=== PATIENT | female | born 1925 | race Caucasian/White ===

== ENCOUNTER 2017-02-26 18:42 | Inpatient (IN) | payer OTHER ==
--- NOTE | 2017-02-26 18:46 | EDPHY ---
HPI/HX/ROS/PE/MDM Narrative: CHIEF COMPLAINT: Stroke alert HISTORY OF PRESENT ILLNESS: This patient is a non-anticoagulated 89 y/o female arriving emergently from home via EMS for a stroke alert. She was last seen normal by her son at 10am. When he returned this evening around 6pm, she was found sitting on the couch with altered mental status, incontinent of bowel and stool and noticed to be weak on her left side. and summoned EMS. Per EMS report, the patient had severe left-sided weakness. She was nauseous and EMS administered 4mg IV Zofran in transport. Vitals were stable in transport, BP 160/100, HR 70, BGL 146. Currently, the patient continues to feel nauseous. She denies any pain including chest pain or abdominal pain. She lives in her own, and states that her son helped her with laundry this morning and then she worked on her income tax this afternoon. She is not sure what happened between that time and her arrival here in the emergency department. She denies history of stroke or heart attack in the past. No fever, chills, chest pain, shortness of breath, palpitations, vomiting, diarrhea, urinary complaints, headache, lightheadedness. REVIEW OF SYSTEMS: Complete Review of systems is unobtainable from this patient because of clinical condition. PAST MEDICAL HISTORY: Cholecystectomy, Hypertension, Left hip fracture. 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 Son present at bedside. VITAL SIGNS: Reviewed by me GENERAL: Elderly female, ill-appearing, slumped to the left side of the EMS gurney. Obvious left-sided neglect. HEENT: Atraumatic. Eyes: No icterus, no injection. No obvious left-sided facial droop. Neck: supple with no adenopathy. LUNGS: Coarse breath sounds throughout. CARDIAC: Regular rate and rhythm, no rubs, murmurs or gallops. ABDOMEN: Soft, nontender, nondistended, bowel sounds normal. BACK: No CVA tenderness. EXTREMITIES: No trauma. No edema. NEURO: Left-sided neglect, left-sided weakness of the arm and leg. Patient is unable to cooperate fully with cranial nerve examinations. No obvious left- sided facial droop. Alert and oriented x3 SKIN: Warm and dry, no rash. PSYCHIATRIC: Normal mentation, no agitation. Portions of this note were transcribed by a medical office worker. I personally performed a history, physical exam, medical decision making, and confirmed accuracy of information the transcribed note. ED Course: 18:42 Met EMS on arrival. 18:[address] Stroke alert called. 19:[address] Erwin, neurologist at [facility]. Patient was last seen normal 9 hr ago. She is out of the window for systemic tPA. Dr. Phelps recommends CT scan of the head and CTA. 19:[address] Kemp, radiologist. No intracranial hemorrhage. Significant white matter disease. Patient is more alert. Further history is obtained. I discussed the results of the CTs thus far with the patient and son. She continues to demonstrate significant weakness on the left side as well as significant left-sided neglect. 20:[address] Kemp. CTA head/neck negative for large vessel occlusions. Patient clinically presents with a significant probable CVA. Urinalysis does not demonstrate any infection. EKG does have T-wave inversions in the lateral leads. Patient's troponin is negative. 20:34 Dr. Tam, hospitalist. accepts admission for CVA, left-sided weakness. MDM: Differential diagnoses the patient's presenting complaints was considered including but not limited to intracranial injury, TIA, ischemic cerebrovascular accident, hemorrhagic cerebrovascular accident, hypoglycemia, complex migraine , metastases, tumor, seizure, or electrolyte abnormality - Data Points Imaging Results: Imaging Impressions Head CT 02/26/17 18:44 Impression: 1. Severe white matter low-attenuation changes consistent with small vessel ischemic disease. 2. Possible dense right middle cerebral artery which may reflect slow flow or occlusion. 3. Right frontal low-attenuation which is more pronounced and could reflect age indeterminate cortical ischemia. Results called and discussed with Valerie Wylie MD, on 02/26/2017 at 19:10. Chest X-Ray 02/26/17 18:46 Impression: 1. Congestive heart failure without elida pulmonary edema. 2. Left basilar opacity, atelectasis versus pneumonia. Head CTA 02/26/17 19:06 Impression: Essentially negative CT angiography of the neck, with no arterial occlusive disease identified. CT Angiography of the Head, With Attention to the [place] Reason for examination: R29.818 - Neurological changes strongly suggesting intracerebral aneurysm. Technique: A spiral acquisition was performed from the base of the brain to the vertex during rapid intravenous administration of 85 mL of Isovue-370. This contrast volume was utilized for evaluation of the neck and head. Axial images are obtained at 0.6-mm thickness, and the examination is reviewed on the workstation in multiple window and level settings. Sagittal and coronal reformats are performed and three-dimensional reformations are performed by the radiologist on the workstation. Dose reduction techniques were utilized. Findings: There is excellent arterial opacification. There is dolichoectasia and atherosclerotic calcification involving the cavernous portions of the internal carotid arteries bilaterally. No obstruction is identified. The anterior and middle cerebral arteries appear normal. Specifically, there is no obstruction of the right middle cerebral artery. The [place] is intact , with both anterior and posterior communicating arteries identified. The basilar artery as well as posterior cerebral arteries are normal. No regions of stenosis are identified. No hemorrhages are seen, and no vascular malformations are identified. No areas of abnormal perfusion are identified, and there are no findings to suggest cortical ischemia. Impression: 1. CT angiography of the head negative for occlusive disease. 2. Atherosclerotic changes and dolichoectasia of cavernous portions of the internal carotid arteries bilaterally. Results called and discussed with Valerie Wylie M.D., on February 26, 2017 at 1957. Note: All stenoses are calculated using NASCET Criteria. Neck CTA 02/26/17 19:06 Impression: Essentially negative CT angiography of the neck, with no arterial occlusive disease identified. CT Angiography of the Head, With Attention to the [place] Reason for examination: R29.818 - Neurological changes strongly suggesting intracerebral aneurysm. Technique: A spiral acquisition was performed from the base of the brain to the vertex during rapid intravenous administration of 85 mL of Isovue-370. This contrast volume was utilized for evaluation of the neck and head. Axial images are obtained at 0.6-mm thickness, and the examination is reviewed on the workstation in multiple window and level settings. Sagittal and coronal reformats are performed and three-dimensional reformations are performed by the radiologist on the workstation. Dose reduction techniques were utilized. Findings: There is excellent arterial opacification. There is dolichoectasia and atherosclerotic calcification involving the cavernous portions of the internal carotid arteries bilaterally. No obstruction is identified. The anterior and middle cerebral arteries appear normal. Specifically, there is no obstruction of the right middle cerebral artery. The [place] is intact , with both anterior and posterior communicating arteries identified. The basilar artery as well as posterior cerebral arteries are normal. No regions of stenosis are identified. No hemorrhages are seen, and no vascular malformations are identified. No areas of abnormal perfusion are identified, and there are no findings to suggest cortical ischemia. Impression: 1. CT angiography of the head negative for occlusive disease. 2. Atherosclerotic changes and dolichoectasia of cavernous portions of the internal carotid arteries bilaterally. Results called and discussed with Valerie Wylie M.D., on February 26, 2017 at 1957. Note: All stenoses are calculated using NASCET Criteria. Imaging: Discussed imaging studies w/ assembler trim Radiologist Laboratory Results: Laboratory Results 02/26/17 18:45 02/26/17 18:45 02/26/17 02/26/17 02/26/17 20:03 20:00 18:45 WBC RBC Hgb POC Hgb Hct POC Hct MCV MCH MCHC RDW Plt Count MPV Neut % (Auto) Lymph % (Auto) [place] % (Auto) Eos % (Auto) Baso % (Auto) Nucleat RBC Rel Count Absolute Neuts (auto) Absolute Lymphs (auto) Absolute Monos (auto) Absolute Eos (auto) Absolute Basos (auto) Absolute Nucleated RBC Immature Gran % Immature Gran # PT INR VBG Lactic Acid 1.6 mmol/L mmol/L (0.7-2.1) POC Sodium Sodium POC Potassium Potassium POC Chloride Chloride Carbon Dioxide Anion Gap POC BUN BUN Creatinine POC Creatinine Estimated GFR Glucose POC Glucose Calcium Troponin I < 0.012 ng/mL ng/mL (0.000-0.034) Urine Color COLORLESS Urine Appearance CLEAR Urine pH 6.0 (5.0-7.5) Ur Specific [place] 1.028 (1.002-1.030) Urine Protein NEGATIVE (NEGATIVE) Urine Ketones TRACE H (NEGATIVE) Urine Blood NEGATIVE (NEGATIVE) Urine Nitrate NEGATIVE (NEGATIVE) Urine Bilirubin NEGATIVE (NEGATIVE) Urine Urobilinogen NEGATIVE EU EU (0.2-1.0) Ur Leukocyte Esterase NEGATIVE (NEGATIVE) Urine RBC 1-3 /hpf /hpf (0-3) Urine WBC 1-3 /hpf /hpf (0-3) Ur Epithelial Cells NONE SEEN /lpf /lpf (NONE-1+) Urine Glucose 1+ H (NEGATIVE) 02/26/17 02/26/1702/26/18 18:45 18:45 18:45 WBC 8.09 10^3/uL 10^3/uL (3.80-9.50) RBC 4.46 10^6/uL 10^6/uL (4.18-5.33) Hgb 14.9 g/dL g/dL (12.6-16.3) POC Hgb Hct 43.9 % % (38.0-47.0) POC Hct MCV 98.4 fL fL (81.5-99.8) MCH 33.4 pg pg (27.9-34.1) MCHC 33.9 g/dL g/dL (32.4-36.7) RDW 12.9 % % (11.5-15.2) Plt Count 189 10^3/uL 10^3/uL (150-400) MPV 9.5 fL fL (8.7-11.7) Neut % (Auto) 71.7 % % (39.3-74.2) Lymph % (Auto) 18.7 % % (15.0-45.0) [place] % (Auto) 7.8 % % (4.5-13.0) Eos % (Auto) 1.0 % % (0.6-7.6) Baso % (Auto) 0.4 % % (0.3-1.7) Nucleat RBC Rel Count 0.0 % % (0.0-0.2) Absolute Neuts (auto) 5.81 10^3/uL 10^3/uL (1.70-6.50) Absolute Lymphs (auto) 1.51 10^3/uL 10^3/uL (1.00-3.00) Absolute Monos (auto) 0.63 10^3/uL 10^3/uL (0.30-0.80) Absolute Eos (auto) 0.08 10^3/uL 10^3/uL (0.03-0.40) Absolute Basos (auto) 0.03 10^3/uL 10^3/uL (0.02-0.10) Absolute Nucleated RBC 0.00 10^3/uL 10^3/uL (0-0.01) Immature Gran % 0.4 % % (0.0-1.1) Immature Gran # 0.03 10^3/uL 10^3/uL (0.00-0.10) PT 13.8 SEC SEC (12.0-15.0) INR 1.04 (0.83-1.16) VBG Lactic Acid POC Sodium Sodium 140 mEq/L mEq/L (135-145) POC Potassium Potassium 4.6 mEq/L mEq/L (3.5-5.2) POC Chloride Chloride 104 mEq/L mEq/L (97-110) Carbon Dioxide 19 mEq/l L mEq/l (22-31) Anion Gap 17 mEq/L H mEq/L (8-16) POC BUN BUN 30 mg/dL H mg/dL (7-23) Creatinine 0.8 mg/dL mg/dL (0.6-1.0) POC Creatinine Estimated GFR > 60 Glucose 137 mg/dL H mg/dL (70-100) POC Glucose Calcium 9.5 mg/dL mg/dL (8.5-10.4) Troponin I Urine Color Urine Appearance Urine pH Ur Specific [place] Urine Protein Urine Ketones Urine Blood Urine Nitrate Urine Bilirubin Urine Urobilinogen Ur Leukocyte Esterase Urine RBC Urine WBC Ur Epithelial Cells Urine Glucose 02/26/17 18:37 WBC RBC Hgb POC Hgb 16.0 gm/dL gm/dL (12.6-16.3) Hct POC Hct 47 % % (38-47) MCV MCH MCHC RDW Plt Count MPV Neut % (Auto) Lymph % (Auto) [place] % (Auto) Eos % (Auto) Baso % (Auto) Nucleat RBC Rel Count Absolute Neuts (auto) Absolute Lymphs (auto) Absolute Monos (auto) Absolute Eos (auto) Absolute Basos (auto) Absolute Nucleated RBC Immature Gran % Immature Gran # PT INR VBG Lactic Acid POC Sodium 138 mEq/L mEq/L (135-145) Sodium POC Potassium 4.2 mEq/L mEq/L (3.3-5.0) Potassium POC Chloride 106 mEq/L mEq/L (97-110) Chloride Carbon Dioxide Anion Gap POC BUN 31 mg/dL H mg/dL (7-23) BUN Creatinine POC Creatinine 0.8 mg/dL mg/dL (0.6-1.0) Estimated GFR Glucose POC Glucose 139 mg/dL H mg/dL (70-100) Calcium Troponin I Urine Color Urine Appearance Urine pH Ur Specific [place] Urine Protein Urine Ketones Urine Blood Urine Nitrate Urine Bilirubin Urine Urobilinogen Ur Leukocyte Esterase Urine RBC Urine WBC Ur Epithelial Cells Urine Glucose Medications Given: Discontinued Medications Ondansetron HCl (Zofran) 4 mg IVP EDNOW ONE Stop: 02/26/17 18:58 Last Admin: 02/26/17 19:09 Dose: 4 mg Ondansetron HCl (Zofran) 4 mg IVP EDNOW ONE Stop: 02/26/17 19:54 Last Admin: 02/26/17 19:53 Dose: 4 mg Ondansetron HCl (Zofran) 4 mg IVP EDNOW ONE Stop: 02/26/17 22:36 Last Admin: 02/26/17 22:36 Dose: 4 mg Point of Care Test Results: 02/26/17 18:37 POC Sodium 138 POC Potassium 4.2 POC Chloride 106 POC BUN 31 H POC Creatinine 0.8 POC Glucose 139 H General Initial Vital Signs: Initial Vital Signs Temperature (C) 36.0 C 02/26/17 18:45 Heart Rate 107 H 02/26/17 18:45 Respiratory Rate 22 H 02/26/17 18:45 Blood Pressure 141/86 H 02/26/17 18:45 O2 Sat (%) 90 L 02/26/17 18:45 O2 Delivery Mode Nasal Cannula O2 (L/minute) 2 Allergies/Adverse Reactions: No Known Allergies Allergy (Verified 02/26/17 21:38) Home Medications: Medication Instructions Recorded Verapamil ER [Calan SR/ER 240MG 240 mg PO DAILY8 08/20/11 (RX)] Levothyroxine [Synthroid 25 mcg 25 mcg PO DAILY06 02/26/17 (*)] Lisinopril [Zestril 10 mg (*)] 10 mg PO DAILY 02/26/17 Departure - Departure Disposition: [facility] Inpatient Acute Clinical Impression: Acute ischemic stroke, Left-sided weakness Condition: Fair
[2017-02-26 18:55] LABS: PLATELET COUNT 189 10^3/uL (150-400)
[2017-02-26] MEDS ORDERED: ONDANSETRON 4 MG/2 ML VIAL ONE ×2 (18:56→22:27)
[2017-02-26] MEDS ORDERED: ONDANSETRON 4 MG/2 ML VIAL IVP ONE ×3 (18:57→22:35)
[2017-02-26 19:03] LABS: INR 1.04 (0.83-1.16); PROTIME(PATIENT) 13.8 SEC (12.0-15.0)
--- NOTE | 2017-02-26 19:32 | CPEKG ---
Heart Rate: 67 RR Interval: 896 P-R Interval: 188 QRSD Interval: 96 QT Interval: 456 QTC Interval: 482 P [place]: 57 QRS [place]: -12 T Wave [place]: 116 EKG Severity - ABNORMAL ECG - EKG Impression: SINUS RHYTHM EKG Impression: ABNORMAL T, CONSIDER ISCHEMIA, LATERAL LEADS Electronically Signed By: Alonzo Dc 26-Feb-2017 19:44:02
[2017-02-26] MEDS ORDERED: ONDANSETRON 4 MG/2 ML VIAL IVP PRN (22:32)
[2017-02-26] MEDS ORDERED: ONDANSETRON DISINTEGRATING 4 MG TAB PO PRN (22:32)
[2017-02-26] MEDS ORDERED: ACETAMINOPHEN 325 MG TAB PO PRN (22:32)
--- NOTE | 2017-02-26 23:41 | PDGENHP ---
History and Physical - Chief Complaint Weakness - History of Present Illness 89 yo F w/ HTN presented via EMS as stroke alert. She was last seen normal by family at 10 AM. The returned around 6 PM and found patient sitting on the cough altered with dense left sided weakness. EMS was called an patient was brought to the ED. Patient is unable to recall these events at the time of my evaluation and can only tell me that she feels well. She is aware that she has had a stroke but is drowsy and will drift to sleep if not aroused. Upon arrival in the ED patient was noted to have severe findings c/w ischemic stroke. Patient is not a tPA candidate due to being out of the window. History Information - Allergies/Home Medication List Allergies/Adverse Reactions: No Known Allergies Allergy (Verified 02/26/17 21:38) Home Medications: Verapamil ER [Calan SR/ER 240MG (RX)] 240 mg PO DAILY8 08/20/11 [Last Taken ] Levothyroxine [Synthroid 25 mcg (*)] 25 mcg PO DAILY06 02/26/17 [Last Taken Unknown] Lisinopril [Zestril 10 mg (*)] 10 mg PO DAILY 02/26/17 [Last Taken 02/26/17] I have personally reviewed and updated: family history, medical history - Past Medical History hypertension Additional medical history: Hypothyroid - Surgical History Additional surgical history: L hip arthroplasty - Family History Positive for: cancer - Social History Smoking Status: Never smoked Review of Systems Review of Systems: ROS: 10pt was reviewed & negative except for what was stated in HPI & below Physical Exam Physical Exam: Temp Pulse Resp BP Pulse Ox 36.3 C 62 18 165/90 H 96 02/26/17 23:22 02/26/17 23:22 02/26/17 23:22 02/26/17 23:22 02/26/17 23:22 O2 (L/minute) 3 Constitutional: no apparent distress, appears nourished Eyes: PERRL, other (Gaze persistently to the right, patient not able to track finger movements) Ears, Nose, Mouth, Throat: moist mucous membranes, no oral mucosal ulcers Cardiovascular: regular rate and rhythym, systolic murmur Respiratory: no respiratory distress, clear to auscultation Gastrointestinal: normoactive bowel sounds, soft, non-tender abdomen Skin: warm, normal color Musculoskeletal: no muscle tenderness, no joint effusions Neurologic: AAOx3, weakness, facial droop, other (L shaheen-neglect on my exam along with dense L-sided weakness including L facial droop; denies numbness) Psychiatric: interacting appropriately, not anxious Lab Data & Imaging Review 02/26/17 18:45 02/26/17 18:45 WBC 8.09 10^3/uL (3.80-9.50) 02/26/17 18:45 RBC 4.46 10^6/uL (4.18-5.33) 02/26/17 18:45 Hgb 14.9 g/dL (12.6-16.3) 02/26/17 18:45 POC Hgb 16.0 gm/dL (12.6-16.3) 02/26/17 18:37 Hct 43.9 % (38.0-47.0) 02/26/17 18:45 POC Hct 47 % (38-47) 02/26/17 18:37 MCV 98.4 fL (81.5-99.8) 02/26/17 18:45 MCH 33.4 pg (27.9-34.1) 02/26/17 18:45 MCHC 33.9 g/dL (32.4-36.7) 02/26/17 18:45 RDW 12.9 % (11.5-15.2) 02/26/17 18:45 Plt Count 189 10^3/uL (150-400) 02/26/17 18:45 MPV 9.5 fL (8.7-11.7) 02/26/17 18:45 Neut % (Auto) 71.7 % (39.3-74.2) 02/26/17 18:45 Lymph % (Auto) 18.7 % (15.0-45.0) 02/26/17 18:45 [facility] % (Auto) 7.8 % (4.5-13.0) 02/26/17 18:45 Eos % (Auto) 1.0 % (0.6-7.6) 02/26/17 18:45 Baso % (Auto) 0.4 % (0.3-1.7) 02/26/17 18:45 Nucleat RBC Rel Count 0.0 % (0.0-0.2) 02/26/17 18:45 Absolute Neuts (auto) 5.81 10^3/uL (1.70-6.50) 02/26/17 18:45 Absolute Lymphs (auto) 1.51 10^3/uL (1.00-3.00) 02/26/17 18:45 Absolute Monos (auto) 0.63 10^3/uL (0.30-0.80) 02/26/17 18:45 Absolute Eos (auto) 0.08 10^3/uL (0.03-0.40) 02/26/17 18:45 Absolute Basos (auto) 0.03 10^3/uL (0.02-0.10) 02/26/17 18:45 Absolute Nucleated RBC 0.00 10^3/uL (0-0.01) 02/26/17 18:45 Immature Gran % 0.4 % (0.0-1.1) 02/26/17 18:45 Immature Gran # 0.03 10^3/uL (0.00-0.10) 02/26/17 18:45 PT 13.8 SEC (12.0-15.0) 02/26/17 18:45 INR 1.04 (0.83-1.16) 02/26/17 18:45 VBG Lactic Acid 1.6 mmol/L (0.7-2.1) 02/26/17 20:03 POC Sodium 138 mEq/L (135-145) 02/26/17 18:37 Sodium 140 mEq/L (135-145) 02/26/17 18:45 POC Potassium 4.2 mEq/L (3.3-5.0) 02/26/17 18:37 Potassium 4.6 mEq/L (3.5-5.2) 02/26/17 18:45 POC Chloride 106 mEq/L (97-110) 02/26/17 18:37 Chloride 104 mEq/L (97-110) 02/26/17 18:45 Carbon Dioxide 19 mEq/l (22-31) L 02/26/17 18:45 Anion Gap 17 mEq/L (8-16) H 02/26/17 18:45 POC BUN 31 mg/dL (7-23) H 02/26/17 18:37 BUN 30 mg/dL (7-23) H 02/26/17 18:45 Creatinine 0.8 mg/dL (0.6-1.0) 02/26/17 18:45 POC Creatinine 0.8 mg/dL (0.6-1.0) 02/26/17 18:37 Estimated GFR > 60 02/26/17 18:45 Glucose 137 mg/dL (70-100) H 02/26/17 18:45 POC Glucose 139 mg/dL (70-100) H 02/26/17 18:37 Calcium 9.5 mg/dL (8.5-10.4) 02/26/17 18:45 Troponin I < 0.012 ng/mL (0.000-0.034) 02/26/17 18:45 Urine Color COLORLESS 02/26/17 20:00 Urine Appearance CLEAR 02/26/17 20:00 Urine pH 6.0 (5.0-7.5) 02/26/17 20:00 Ur Specific [place] 1.028 (1.002-1.030) 02/26/17 20:00 Urine Protein NEGATIVE (NEGATIVE) 02/26/17 20:00 Urine Ketones TRACE (NEGATIVE) H 02/26/17 20:00 Urine Blood NEGATIVE (NEGATIVE) 02/26/17 20:00 Urine Nitrate NEGATIVE (NEGATIVE) 02/26/17 20:00 Urine Bilirubin NEGATIVE (NEGATIVE) 02/26/17 20:00 Urine Urobilinogen NEGATIVE EU (0.2-1.0) 02/26/17 20:00 Ur Leukocyte Esterase NEGATIVE (NEGATIVE) 02/26/17 20:00 Urine RBC 1-3 /hpf (0-3) 02/26/17 20:00 Urine WBC 1-3 /hpf (0-3) 02/26/17 20:00 Ur Epithelial Cells NONE SEEN /lpf (NONE-1+) 02/26/17 20:00 Urine Glucose 1+ (NEGATIVE) H 02/26/17 20:00 Imaging Review: Imaging Impressions Head CT 02/26/17 18:44 Impression: 1. Severe white matter low-attenuation changes consistent with small vessel ischemic disease. 2. Possible dense right middle cerebral artery which may reflect slow flow or occlusion. 3. Right frontal low-attenuation which is more pronounced and could reflect age indeterminate cortical ischemia. Results called and discussed with Valerie Wylie MD, on 02/26/2017 at 19:10. Chest X-Ray 02/26/17 18:46 Impression: 1. Congestive heart failure without elida pulmonary edema. 2. Left basilar opacity, atelectasis versus pneumonia. Head CTA 02/26/17 19:06 Impression: Essentially negative CT angiography of the neck, with no arterial occlusive disease identified. CT Angiography of the Head, With Attention to the [place] Reason for examination: R29.818 - Neurological changes strongly suggesting intracerebral aneurysm. Technique: A spiral acquisition was performed from the base of the brain to the vertex during rapid intravenous administration of 85 mL of Isovue-370. This contrast volume was utilized for evaluation of the neck and head. Axial images are obtained at 0.6-mm thickness, and the examination is reviewed on the workstation in multiple window and level settings. Sagittal and coronal reformats are performed and three-dimensional reformations are performed by the radiologist on the workstation. Dose reduction techniques were utilized. Findings: There is excellent arterial opacification. There is dolichoectasia and atherosclerotic calcification involving the cavernous portions of the internal carotid arteries bilaterally. No obstruction is identified. The anterior and middle cerebral arteries appear normal. Specifically, there is no obstruction of the right middle cerebral artery. The [place] is intact , with both anterior and posterior communicating arteries identified. The basilar artery as well as posterior cerebral arteries are normal. No regions of stenosis are identified. No hemorrhages are seen, and no vascular malformations are identified. No areas of abnormal perfusion are identified, and there are no findings to suggest cortical ischemia. Impression: 1. CT angiography of the head negative for occlusive disease. 2. Atherosclerotic changes and dolichoectasia of cavernous portions of the internal carotid arteries bilaterally. Results called and discussed with Valerie Wylie M.D., on February 26, 2017 at 1957. Note: All stenoses are calculated using NASCET Criteria. Neck CTA 02/26/17 19:06 Impression: Essentially negative CT angiography of the neck, with no arterial occlusive disease identified. CT Angiography of the Head, With Attention to the [place] Reason for examination: R29.818 - Neurological changes strongly suggesting intracerebral aneurysm. Technique: A spiral acquisition was performed from the base of the brain to the vertex during rapid intravenous administration of 85 mL of Isovue-370. This contrast volume was utilized for evaluation of the neck and head. Axial images are obtained at 0.6-mm thickness, and the examination is reviewed on the workstation in multiple window and level settings. Sagittal and coronal reformats are performed and three-dimensional reformations are performed by the radiologist on the workstation. Dose reduction techniques were utilized. Findings: There is excellent arterial opacification. There is dolichoectasia and atherosclerotic calcification involving the cavernous portions of the internal carotid arteries bilaterally. No obstruction is identified. The anterior and middle cerebral arteries appear normal. Specifically, there is no obstruction of the right middle cerebral artery. The [place] is intact , with both anterior and posterior communicating arteries identified. The basilar artery as well as posterior cerebral arteries are normal. No regions of stenosis are identified. No hemorrhages are seen, and no vascular malformations are identified. No areas of abnormal perfusion are identified, and there are no findings to suggest cortical ischemia. Impression: 1. CT angiography of the head negative for occlusive disease. 2. Atherosclerotic changes and dolichoectasia of cavernous portions of the internal carotid arteries bilaterally. Results called and discussed with Valerie Wylie M.D., on February 26, 2017 at 1957. Note: All stenoses are calculated using NASCET Criteria. Assessment & Plan Assessment: 89 yo F w/ hypothyroid and HTN presents with acute ischemic stroke. Plan: 1. Acute ischemic stroke - NIHSS of 15 on my evaluation for dense left sided weakness as well as apparent L sided shaheen-neglect. Patient presented outside of tPA window as she was found ~8 hours after last known normal. CT Head revealed right frontal low-attenuation which is more pronounced and could reflect age indeterminate cortical ischemia. CTA head and neck showed no acute occlusion. - MRI brain w/o contrast ordered for the AM - TTE with bubble, monitor on telemetry - Check lipid panel and A1c with AM labs - PT, OT, SALON MANAGER evaluations - Neurology consult placed, appreciate assistance - Permissive HTN for 24 hours, BP goal <220/120 2. Hx HTN - On verapamil and lisinopril as outpatient. 3. Hypothyroid - On LTX. Diet - Pending SALON MANAGER evaluation Ppx - SCDs Code - Full Dispo - Admit to inpatient status noting severe disability as a result of acute stroke.
[2017-02-27 05:56] LABS: PLATELET COUNT 179 10^3/uL (150-400)
[2017-02-27] MEDS ORDERED: ASPIRIN EC 81 MG TAB PO SCH (10:00)
--- NOTE | 2017-02-27 10:41 | GCON ---
[f rep st] CONSULTATION NEUROLOGY CONSULTATION REFERRING PHYSICIAN: Dieter Scanlon MD CHIEF COMPLAINT: Stroke. HISTORY OF PRESENT ILLNESS: The patient is a very pleasant, 89-year-old lady who was living independently prior to the event yesterday. Apparently, her son saw her yesterday morning at 10 a.m., and she was normal. When he returned yesterday evening around 6 p.m., 8 hours later, she was apparently altered, incontinent, and had left-sided weakness. She came under a stroke alert and was evaluated in our emergency department. Of note, she does live independently. She had a little help with laundry and some other things, but she was actually working on her own taxes yesterday afternoon apparently when this event occurred. She had a head CT and CTA of the head and neck emergently in the ER and was evaluated by Dr. Erwin at [facility]. Her last seen was normal was 8- 9 hours prior to his evaluation. She was out of the tPA window. CTA of the head and neck showed no large vessel occlusion. She was admitted for further workup. Echo and MRI are pending. REVIEW OF SYSTEMS: Limited. For Past Medical History, Social History, Family History, Home Medications, please see Dr. Scanlon's history and physical. PHYSICAL EXAM: VITAL SIGNS: Blood pressure 154/92, temperature 36.5, heart rate 75, no AFib on telemetry thus far. GENERAL: The patient is awake and alert. No aphasia, but answers come slowly when in conversation. NEUROLOGIC: Cranial nerve exam: She has right upward gaze deviation and some neglect on the left side. She has a dense left hemiparesis. IMPRESSION AND PLAN: 1. Right frontal cortical infarct. The patient's neurologic exam localizes to the right frontal region in terms of the distribution of the acute stroke. She has rightward gaze deviation consistent with involvement of the frontal eye leyva in the right frontal cortex along with a dense left hemiparesis. She was not a candidate for any acute intervention. I have started her on a baby aspirin daily. She will likely need statin therapy along with medications for her other vascular risk factors. From what she tells me, she was not taking any antithrombotic prior to this event. She had no other significant vascular risk factors outside of hypertension. Going forward, will review the MRI brain to visualize the extent of the acute stroke, echocardiography, and continue monitoring for atrial fibrillation on telemetry. She will need intensive physical therapy, occupational therapy, speech and therapies along with consideration of placement now. She certainly may need a 30-day event monitor or implantable lump maker depending on how her workup evolves to screen for paroxysmal atrial fibrillation. Seventy total minutes floor time today reviewing records, direct counseling, and coordination of care. We will follow up on the above. Thank you for this consultation. /[id number]/MODL MTDD
--- NOTE | 2017-02-27 12:39 | PDMN ---
Medical Necessity Medical necessity: Pt meets IP criteria per MD; est los >2 mn for eval/tx of acute ischemic stroke & severe disability; admit for further workup/monitoring, Neuro consult & therapies; hx advanced age & htn; per H&P & order 02/26/17
--- NOTE | 2017-02-27 14:00 | ECHO ---
[email or web address] [address] [address] Main: [phone] Fax: Transthoracic Echocardiogram Name: DUANE PANG MR#: [id number] Study Date: 02/27/2017 Study Time: 08:36 AM Date of : 1925 Age: 89 year(s) Height: 160 cm (63 in.) Weight: 63.5 kg (140 lb.) BSA: 1.66 m2 Gender: Female Examination: Echo with Agitated Saline Indication: ischemic stroke bubble Image Quality: Technically Difficult Contrast: I.V. dose of agitated saline Requested by: Dieter Deluca BP: 160 mmHg/73 mmHg Heart Rate: Rhythm: Indication: ischemic stroke bubble Procedure Staff Analytical Research Chemist: Izzy Heck Reading Physician: Rhea Desai Requesting Provider: Conclusions: Normal size left ventricle. Mild concentric LV hypertrophy. Normal global systolic LV function. EF is 71 %. No regional wall motion abnormality. Grade 1 diastolic dysfunction (abnormal relaxation). Elevated left ventricular filling pressures.. Normal size right ventricle. Normal RV function. The left atirum is borderline dilated. An agitated saline study was performed and was negative for intracardiac shunting. The right atrium is normal in size. Mild to moderate calcification on the aortic valve leaflets. No aortic valve stenosis is present. Mild tricuspid regurgitation is present. Right ventricular systolic pressure measures 34mmHg. Mild pulmonic valve regurgitation is noted. There is no previous echocardiogram for comparison. No obvious cardiac source of embolism Measurements: Chambers Valvular Assessment AV/MV Valvular Assessment TV/PV Normal Normal Normal Name Value Range Name Value Range Name Value Range Ao Martha (MM): 2.9 cm (2.2 cm-3.7 AV Vmax: 1.92 m/s (1 m/s-1.7 TR Vmax: 2.71 mm/s ( - ) cm) m/s) TR PGmax: 29 mmHg ( - ) IVSd (2D): 1.1 cm (0.6 cm-1.1 AV maxP mmHg ( - ) syst. PAP: 34 mmHg ( - ) cm) AV meanP mmHg ( - ) PV Vmax: 0.93 m/s (0.6 m/s-0.9 LVDd (2D): 3.9 cm (3.9 cm-5.3 LVOT Vmax: 1.12 m/s (0.7 m/s-1.1 m/s) cm) m/s) PV PGmax: 3 mmHg ( - ) AVINASH (Vmax): 2.4 cm2 ( - ) Patient: DUANE PANG Study Date: 02/27/2017 Page 1 of 2 08:36 AM LVDs (2D): 2.5 cm (2.1 cm-4 AVINASH (VTI): 2.6 cm ( - ) cm) MV E Vmax: 0.64 m/s ( - ) LVPWd (2D): 1.1 cm ( - ) MV A Vmax: 1.08 m/s ( - ) LVOTd 2.3 cm 2.3 cm mm MV E/A: 0.59 ( - ) LVEF (BP): 71 % (>=55 %) RVDd(2D): 2.5 cm (1.9 cm-3.8 cmmm) Continued Measurements: Chambers Valvular Assessment AV/MV Valvular Assessment TV/PV Name Value Name Value Name Value LADs Lon.9 cm MV DecTime: 261 m/s CVP (est.): 5 mmHg LA Area: 19.5 cm2 MV E/E' Septal: 19.90 LA Volume: 55 ml MV E/E' Lateral: 15.00 LA Volume Index: 33.1 ml/m2 RA Area: 10.6 cm2 Additional Vessels Name Value Ao Ascendin.0 cm Findings: Left Ventricle: Normal size left ventricle. Mild concentric LV hypertrophy. Normal global systolic LV function. EF is 71 %. No regional wall motion abnormality. Grade 1 diastolic dysfunction (abnormal relaxation). Elevated left ventricular filling pressures.. Right Ventricle: Normal size right ventricle. Normal RV function. Left Atrium: The left atirum is borderline dilated. An agitated saline study was performed and was negative for intracardiac shunting. Right Atrium: The right atrium is normal in size. Mitral Valve: The mitral valve is normal in appearance and function. Mild mitral annular calcification. There is no significant mitral valve regurgitation. No mitral stenosis is present. Aortic Valve: The aortic valve is normal in appearance and function. Mild to moderate calcification on the aortic valve leaflets. There is no significant aortic valve regurgitation. No aortic valve stenosis is present. Tricuspid Valve: The tricuspid valve is normal in appearance and function. Mild tricuspid regurgitation is present. Right ventricular systolic pressure measures 34mmHg. Pulmonic Valve: The pulmonic valve is normal in appearance and function. Mild pulmonic valve regurgitation is noted. Aorta: The aorta is normal. Normal size aortic root measuring 2.9 cm. Normal size ascending aorta measuring 3.0 cm. Pericardium: No pericardial effusion. (No Signature Object) Patient: DUANE PANG Study Date: 02/27/2017 Page 2 of 2 08:36 AM [id number]
--- NOTE | 2017-02-27 14:32 | HOSPPROG ---
Hospitalist Progress Note Assessment/Plan: Patient is an 89-year-old female who was brought via EMS as a stroke alert. She was seen by family at 10:00 a.m. and was normal. When they returned at 6 pm she was flaccid on left side. * acute ischemic stroke, right frontal cortical infarct -she was not a candidate for tPA -MRI is pending -aspirin has been started will initiate statin therapy -echocardiogram was negative for intracardiac shunting -hemoglobin A1c is stable * hypertension -allow permissive in the setting of a stroke * hypothyroidism -continue Synthroid * V tach/20 beats -will check electrolytes and continue monitoring on telemetry -otherwise she has been in sinus rhythm * plan. Will order inpatient rehab. Updated her son about her stroke. Her code status should be further discussed. Because she appears to have had a large stroke. Reviewed her care with Dr. Mckenzie. She will get a repeat CT scan in the morning. Subjective: Sarah gaze is to the right says she has no pain but wants to go to the bathroom Objective: Vital Signs Temp Pulse Resp BP Pulse Ox 36.4 C 72 18 156/74 H 92 02/27/17 08:00 02/27/17 08:00 02/27/17 08:00 02/27/17 08:00 02/27/17 08:00 Laboratory Results 02/27/17 05:12 02/27/17 05:12 02/26/17 02/27/17 02/28/17 05:59 05:59 05:59 Output Total 850 Balance -850 PT 13.8 SEC (12.0-15.0) 02/26/17 18:45 INR 1.04 (0.83-1.16) 02/26/17 18:45 - Physical Exam Constitutional: appears nourished, not in pain Eyes: other (Patient gaze is to the right, she is unable to look at me when I walked to her left side) Respiratory: no respiratory distress Gastrointestinal: normoactive bowel sounds Skin: warm Musculoskeletal: other (She has significant left-sided shaheen paresis) Neurologic: facial droop Psychiatric: other (She is able to answer my questions but very slowly) ICD10 Worksheet Patient Problems: Problems Problem Status Onset Acute ischemic stroke Acute Left-sided weakness Acute Closed fracture of intracapsular section of femur Active Essential hypertension Active Hypothyroidism Active Left hip hemiarthroplasty Active
[2017-02-27] MEDS ORDERED: LIDOCAINE 1% 300 MG/30 ML SDV SC ONE (15:53)
--- NOTE | 2017-02-27 17:26 | ASMTCMCOM ---
CM Note CM Note Notes: Pt admitted with CVA, weakness. Lives alone in an apt in [place] and has a son who lives locally. PT/OT recommending SNF. Inpt Rehab evaluating. CM will follow. Date Signed: 02/27/2017 05:26 PM Electronically Signed By:BRIAN Serrano
[2017-02-27] MEDS: ASPIRIN 81 MG CHEWABLE TAB PO SCH (18:50)
[2017-02-28] MEDS: LEVOTHYROXINE 25 MCG TAB PO SCH (05:29)
[2017-02-28] MEDS ORDERED: NS 1,000 ML IV ONE (06:00)
[2017-02-28] MEDS: ATORVASTATIN CALCIUM 10 MG TAB PO SCH (09:08)
[2017-02-28] MEDS: ASPIRIN 81 MG CHEWABLE TAB PO SCH (09:08)
--- NOTE | 2017-02-28 11:06 | NEUROPROG ---
Assessment: 1. Stroke 35 total minutes floor time; including review of the brain MRI, direct counseling with the patient, attempted contact with family members and coordination of care. The brain MRI shows a very large right hemisphere stroke with some areas of acute infarct in the left hemisphere as well suggestive of a embolic source. Radiology also noted some areas of hemorrhagic transformation. There has been no atrial fibrillation on telemetry thus far, per report. Echocardiogram showed no cardiac source of thrombus. She is on aspirin and statin therapy . I attempted to call both her son and daughter to get their input on the plan of care. At this point, even if she did have atrial fibrillation on telemetry, we could not start anticoagulation 14-30 days based on the large size of the infarct and potential underlying hemorrhagic transformation. We ordered a repeat head CT for this morning which has not been done yet to clarify the extent of hemorrhage. Based on the head CT results, we can give further recommendations counseling to the patient and family. Certainly, she could be transferred to a [place] [facility] facility when stable and have an outpatient Cardiology evaluation for prolonged ECG monitoring at that time based on patient and family preferences. Subjective: No new symptoms Objective: Vital Signs Temp Pulse Resp BP Pulse Ox 36.4 C 72 25 H 182/90 H 96 02/28/17 08:00 02/28/17 08:00 02/28/17 08:00 02/28/17 08:00 02/28/17 08:00 Laboratory Results 02/27/17 05:12 02/27/17 05:12 02/27/17 02/28/17 03/01/17 05:59 05:59 05:59 Intake Total 200 Output Total 850 Balance -850 200 PT 13.8 SEC (12.0-15.0) 02/26/17 18:45 INR 1.04 (0.83-1.16) 02/26/17 18:45 Awake and alert Speech is fluent Right gaze deviation Dense left shaheen paresis Allergies/Adverse Reactions: No Known Allergies Allergy (Verified 02/26/17 21:38)
--- NOTE | 2017-02-28 11:19 | HOSPPROG ---
Hospitalist Progress Note Assessment/Plan: Patient is an 89-year-old female who was brought via EMS as a stroke alert. She was seen by family at 10:00 a.m. and was normal. When they returned at 6 pm she was flaccid on left side. * acute ischemic stroke, right frontal cortical infarct -she was not a candidate for tPA -MRI shows a very large right hemispheric stroke with some areas of acute infarct in the left hemisphere suggesting an embolic source. There is also noted some areas of hemorrhagic transformation. -aspirin and statin -echocardiogram was negative for intracardiac shunting -hemoglobin A1c is stable -if the patient did have any atrial fibrillation she could not be started on anticoagulation for 14-30 days based on the large size of the infarct and concern for hemorrhagic transformation -patient will need close follow-up with Cardiology and will need a Holter monitor to rule out atrial fibrillation -repeat CT of head today is pending * hypertension -allow permissive in the setting of a stroke * hypothyroidism -continue Synthroid * V tach/20 beats -will check electrolytes and continue monitoring on telemetry -otherwise she has been in sinus rhythm * plan. Patient to get a repeat CT of her head today. Reviewed her care with her son. He does not want her to go to a half-way facility out of her previous fears of being in care home. He feels he can care for her. Told him that she is has paralysis on her left side and she will need 24 hr care. Will ask case management to get further involved. Also reviewed her code status with her son, his sister will be flying in later today and they will further discuss this. Subjective: Sarah is more conversant today, c/o overall being 'sore' from being in bed. Objective: Vital Signs Temp Pulse Resp BP Pulse Ox 36.4 C 72 25 H 182/90 H 96 02/28/17 08:00 02/28/17 08:00 02/28/17 08:00 02/28/17 08:00 02/28/17 08:00 Laboratory Results 02/27/17 05:12 02/27/17 05:12 02/27/17 02/28/17 03/01/17 05:59 05:59 05:59 Intake Total 200 Output Total 850 Balance -850 200 PT 13.8 SEC (12.0-15.0) 02/26/17 18:45 INR 1.04 (0.83-1.16) 02/26/17 18:45 - Physical Exam Constitutional: no apparent distress, not in pain Eyes: other (eyes deviate to the right/ has a chronic right sided gaze) Ears, Nose, Mouth, Throat: hearing normal Cardiovascular: regular rate and rhythym Respiratory: no respiratory distress Gastrointestinal: normoactive bowel sounds Skin: warm Neurologic: facial droop, other (left side flaccid), No sensation intact bilaterally (is not feeling my hand when i touch her left leg or left arm) Psychiatric: interacting appropriately ICD10 Worksheet Patient Problems: Problems Problem Status Onset Acute ischemic stroke Acute Left-sided weakness Acute Closed fracture of intracapsular section of femur Active Essential hypertension Active Hypothyroidism Active Left hip hemiarthroplasty Active
[2017-03-01] MEDS: LEVOTHYROXINE 25 MCG TAB PO SCH (05:21)
--- NOTE | 2017-03-01 10:14 | NEUROPROG ---
Assessment: 1. Stroke I was requested to follow up with the patient today as her daughter, who is a RN , got into town to review the stroke and management plan. 35 total minutes floor time; including review of the brain MRI, direct counseling with the patient, and her daughter and son. The brain MRI shows a very large right hemisphere stroke with some areas of acute infarct in the left hemisphere as well suggestive of a embolic source. Radiology also noted some areas of hemorrhagic transformation. There has been no atrial fibrillation on telemetry thus far, per report. Echocardiogram showed no cardiac source of thrombus. She is on aspirin and statin therapy . I counseled the family that at this point, even if she did have atrial fibrillation on telemetry, we could not start anticoagulation 14-30 days based on the large size of the infarct and potential underlying hemorrhagic transformation. Repeat head CT confirmed areas of hemorrhage within the ischemic infarct. Going forward, she needs full therapies and placement to a alf facility. She will continue aspirin 81 mg daily plus statin therapy. She will outpatient have Cardiology consultation for ECG monitoring to further screening for PAF. She will follow up with Neurology as an outpatient in 4-6 weeks to review all of the above. If she has atrial fibrillation detected on outpatient ECG monitoring, we will need to repeat head CT in 4 weeks to see if the blood products have resolved prior to initiating oral anticoagulation. No further recommendations, we will continue to follow this very pleasant patient p.r.n. Subjective: No new symptoms Objective: Vital Signs Temp Pulse Resp BP Pulse Ox 36.5 C 61 20 135/84 H 93 03/01/17 07:09 03/01/17 07:09 03/01/17 07:09 03/01/17 08:32 03/01/17 07:09 Laboratory Results 02/27/17 05:12 02/27/17 05:12 02/28/17 03/01/17 03/02/17 05:59 05:59 05:59 Intake Total 200 546 Balance 200 546 PT 13.8 SEC (12.0-15.0) 02/26/17 18:45 INR 1.04 (0.83-1.16) 02/26/17 18:45 Awake and alert Left-sided neglect Right gaze deviation Dense left shaheen paresis Allergies/Adverse Reactions: No Known Allergies Allergy (Verified 02/26/17 21:38)
--- NOTE | 2017-03-01 10:26 | ASMTCMCOM ---
CM Note CM Note Notes: Pt does not have sufficient goals for [facility] inpatient rehab. Spoke w pt and son Blair about SNF, pt agreeable. Blair will try to tour facilities with his sister. SNF list provided and pt/family to let CM know SNF choice. CM to follow. Date Signed: 03/01/2017 10:26 AM Electronically Signed By:BRIAN Gregg
[2017-03-01] MEDS: ATORVASTATIN CALCIUM 10 MG TAB PO SCH (11:06)
[2017-03-01] MEDS: ASPIRIN 81 MG CHEWABLE TAB PO SCH (11:06)
--- NOTE | 2017-03-01 13:24 | HOSPPROG ---
Hospitalist Progress Note Assessment/Plan: Hospitalist Progress Note Assessment/Plan: Patient is an 89-year-old female who was brought via EMS as a stroke alert. She was seen by family at 10:00 a.m. and was normal. When they returned at 6 pm she was flaccid on left side. First encounter, chart reviewed. D/W Dr Mckenzie. * acute ischemic stroke, right frontal cortical infarct the brain MRI shows a very large right hemisphere stroke with some areas of acute infarct in the left hemisphere as well suggestive of a embolic source. Radiology also noted some areas of hemorrhagic transformation. There has been no atrial fibrillation on telemetry thus far, per report. Echocardiogram showed no cardiac source of thrombus. She is on aspirin and statin therapy . can not start anticoagulation for 14-30 days based on the large size of the infarct, if needed. Repeat head CT confirmed areas of hemorrhage within the ischemic infarct. hemoglobin A1c is stable patient will need close follow-up with Cardiology and will need a Holter monitor to rule out atrial fibrillation * hypertension allow permissive in the setting of a stroke * hypothyroidism continue Synthroid * V tach/20 beats electrolytes and continue monitoring on telemetry otherwise she has been in sinus rhythm * plan. Going forward, she needs full therapies and placement to a [facility] facility. She will continue aspirin 81 mg daily plus statin therapy. She will outpatient have Cardiology consultation for ECG monitoring to further screening for PAF. She will follow up with Neurology as an outpatient in 4-6 weeks to review all of the above. If she has atrial fibrillation detected on outpatient ECG monitoring, we will need to repeat head CT in 4 weeks to see if the blood products have resolved prior to initiating oral anticoagulation. Palliative care consult for tomorrow. Subjective: Feels tired today. No pain. Daughter at bedside. Objective: Vital Signs Temp Pulse Resp BP Pulse Ox 37.6 C 78 20 145/90 H 94 03/01/17 12:00 03/01/17 12:00 03/01/17 12:00 03/01/17 12:00 03/01/17 12:00 Laboratory Results 02/27/17 05:12 02/27/17 05:12 02/28/17 03/01/17 03/02/17 05:59 05:59 05:59 Intake Total 200 546 Balance 200 546 PT 13.8 SEC (12.0-15.0) 02/26/17 18:45 INR 1.04 (0.83-1.16) 02/26/17 18:45 - Physical Exam Constitutional: appears nourished, not in pain, chronically ill appearing Eyes: PERRL, anicteric sclera, EOMI Ears, Nose, Mouth, Throat: moist mucous membranes, hearing normal, ears appear normal Cardiovascular: No JVD, No tachycardia, No edema Respiratory: no respiratory distress, no rales or rhonchi, reduced air movement Gastrointestinal: normoactive bowel sounds, No tenderness, No ascites Skin: warm, normal color, No erythema Musculoskeletal: no joint effusions, generalized weakness, No normal joint ROM Neurologic: AAOx3, weakness Psychiatric: interacting appropriately, not encephalopathic, poor memory ICD10 Worksheet Patient Problems: Problems Problem Status Onset Acute ischemic stroke Acute Left-sided weakness Acute Closed fracture of intracapsular section of femur Active Essential hypertension Active Hypothyroidism Active Left hip hemiarthroplasty Active
--- NOTE | 2017-03-01 15:43 | ASMTCMCOM ---
CM Note CM Note Notes: Pt dghtr Janie reports she will tour SNFs in [place] tomorrow with pt son Blair. [facility]errals sent to [facility], [facility], [facility] and [facility]. [facility] can [facility], the others are pending. Pt likely d/c tomorrow. CM to follow. Date Signed: 03/01/2017 03:43 PM Electronically Signed By:BRIAN Gregg
[2017-03-01] MEDS ORDERED: POLYETHYLENE GLYCOL 3350 17 GM PKT PO PRN (17:28)
[2017-03-01] MEDS ORDERED: MAGNESIUM HYDROXIDE 30 ML UDCUP PO PRN (17:28)
[2017-03-01] MEDS ORDERED: BISACODYL 10 MG SUPP PR PRN (17:28)
[2017-03-01] MEDS ORDERED: LACTULOSE 20 GM/30 ML UDCUP PO PRN (17:28)
[2017-03-02 00:20] VITALS: RESP 18
[2017-03-02] MEDS: SENNOSIDES/DOCUSATE SODIUM TAB PO SCH ×2 (00:22→09:22)
[2017-03-02] MEDS: LEVOTHYROXINE 25 MCG TAB PO SCH (06:04)
[2017-03-02] MEDS: ATORVASTATIN CALCIUM 10 MG TAB PO SCH (09:22)
[2017-03-02] MEDS: ASPIRIN 81 MG CHEWABLE TAB PO SCH (09:22)
[2017-03-02 12:00] VITALS: BP 152/86; PULSE 75; TEMP 98.6; O2SAT 96
--- NOTE | 2017-03-02 12:24 | PDIAF ---
- Diagnosis Diagnosis: CVA Code Status: Limited Resuscitation - Medication Management Discharge Medications: Medications to Continue on Transfer Verapamil ER [Calan SR/ER 240MG (*)] 240 mg PO DAILY8 08/20/11 [Last Taken 02/26] Levothyroxine [Synthroid 25 mcg (*)] 25 mcg PO DAILY06 02/26/17 [Last Taken Unknown] Acetaminophen [Tylenol 325mg (*)] 650 mg PO Q4HRS PRN tab 03/02/17 [Last Taken Unknown] Aspirin [Aspirin 81mg (*)] 81 mg PO DAILY tab.chew 03/02/17 [Last Taken Unknown ] Atorvastatin Calcium [Lipitor 10 mg (*)] 10 mg PO DAILY tab 03/02/17 [Last Taken Unknown] Polyethylene Glycol 3350 [Miralax 17 gm (*)] 17 gm PO DAILY PRN pkt 03/02/17 [ Last Taken Unknown] Sennosides/Docusate Sodium [Senokot-S] 1 - 2 tab PO BID tab 03/02/17 [Last Taken Unknown] Discharge Medications: Refer to the Discharge Home Medication list for PRN reason. - Orders Services needed: Registered Nurse, Physical Therapy, Occupational Therapy Diet Recommendation: no restrictions on diet Diet Texture: Dysphagia 3 - Advanced - Moist, Bite-Size, Thin Liquids, Meds Crushed in Puree - Follow Up Care Current Providers and Referrals: Patient,NotPresent [Unknown] - As per Instructions
--- NOTE | 2017-03-02 17:26 | GDS ---
[f rep st] DISCHARGE SUMMARY DISCHARGE DIAGNOSES: 1. Acute ischemic stroke. 2. Hypertension. 3. Hypothyroidism. STUDIES AND PROCEDURES DONE: 1. CT of the head. 2. CT angio of the head and neck. 3. Echocardiogram. 4. Brain MRI. CONSULTATIONS: Neurology. PHYSICAL EXAM: GENERAL: The patient is alert. VITAL SIGNS: Afebrile at 37, pulse 75, respiratory rate is 18, blood pressure is 152/86, saturating 96% on 2 L. I have seen and evaluated the patient o n the day of discharge HOSPITAL COURSE: The patient is an 89-year-old female brought to the emergency room as a stroke aler t. She was evaluated and diagnosed with: 1. Acute ischemic stroke. This appeared in the right frontal cortical area. The MRI of the brain s howed a large right hemispheric stroke. She received a consultation from Neurology. Echocardiogram showed no source of thrombus. She is on aspirin and statin therapy. She will have close followup [facility] Cardiology and a Holter monitor in the outpatient setting. 2. Hypertension. This is stable in the setting of stroke. 3. Hypothyroidism. Continue her Synthroid. 4. Ventricular tachycardia. She has had no further episodes since her electrolytes have been monito red. DISPOSITION: She will be discharged to [facility] for further rehabilitation and management. There are no pending studies. DISCHARGE MEDICATIONS: Please refer to EMR form. The patient's lisinopril has been discontinued dur ing this hospital course, and her verapamil has been reinstated prior to disposition. She is not a c andidate for anticoagulation therapy. FOLLOWUP INSTRUCTIONS: She needs followup with Cardiology and Holter monitoring in the outpatient patricia. I spent greater than 35 minutes in the care, coordination, and management of the patient's juliana n. /[id number]/MODL
--- NOTE | 2017-03-03 09:44 | ASDISCHSUM ---
Discharge Information Plan Status:SNF Medically Cleared to Leave: Discharge Date:03/02/2017 03:40 PM D/C Disposition:Custodial Facility ADT D/C Disposition:Custodial Facility Projected Discharge Date:03/02/2017 11:00 AM Transportation at D/C: Discharge Delay Reason: Follow-Up Date:03/02/2017 11:00 AM Discharge Slot: Final Diagnosis: Placement Information Referral Type:*Skilled Nursing/SNF Referral ID:[id number] Provider Name:[facility] Address 1:[address] Address 2: City:[place] Selection Factors: State:[place] Patient Contact Information Contact Name:ROMANA Relationship:Son Address: City:[place] Alternate Phone: [facility]/Zip Code:[place] [address] Email: Financial Information Financial Class: Primary Plan Desc:MEDICARE INPATIENT Primary Plan Number:[id number] Secondary Plan Desc:[facility] Secondary Plan Number:[id number] Assessment Information [facility] CM Progress Note CM Note CM Note Notes: Pt admitted with CVA, weakness. Lives alone in an apt in [place] and has a son who lives locally. PT/OT recommending SNF. Inpt Rehab evaluating. CM will follow. Date Signed: 02/27/2017 05:26 PM Electronically Signed By:BRIAN Serrano [facility] CM Progress Note CM Note CM Note Notes: Pt does not have sufficient goals for [facility] inpatient rehab. Spoke w pt and son Blair about SNF, pt agreeable. Blair will try to tour facilities with his sister. SNF list provided and pt/family to let CM know SNF choice. CM to follow. Date Signed: 03/01/2017 10:26 AM Electronically Signed By:BRIAN Gregg [facility] CM Progress Note CM Note CM Note Notes: Pt dghtr Janie reports she will tour SNFs in [place] tomorrow with pt son Blair. [facility], [facility], [facility] and [facility]. [facility], the others are pending. Pt likely d/c tomorrow. CM to follow. Date Signed: 03/01/2017 03:43 PM Electronically Signed By:BRIAN Gregg Intervention Information Intervention Type:*IM-Signed Date of Service:03/02/2017 12:59 PM Patient Type:Inpatient Staff Member:Zoila Mayberry Hours: Discipline: Severity: Comment:
== END 2017-03-02 15:40 | DRG 65 ==
LOC: EDUNIT# → F3N 22:30
PROVIDERS: ADMIT Student in an Organized Health Care Education/Training Program; ATTEND Student in an Organized Health Care Education/Training Program
DX: I63.9 Cerebral infarction, unspecified (principal); I47.2 Ventricular tachycardia; I10 Essential (primary) hypertension; E03.9 Hypothyroidism, unspecified
CPT/HCPCS: 82947-QW; 92507-GN; 92523-GN; 92526-GN; 92610-GN; 96374; 97112-GP; 97163-GP; 97167-GO; 97530-GO; 97530-GP; 97535-GO; G8978-GP-CM; G8979-GP-CK; G8987-GO-CM; G8988-GO-CL; G8996-GN-CJ; G8997-GN-CI; G9168-GN-CK; G9169-GN-CK; G9170-GN-CK; J2405